=== PATIENT | male | born 1990 | race Caucasian/White ===

== ENCOUNTER 2022-04-05 10:40 | Emergency (ER) | payer MEDICAID ==
[~2022-04-05] VITALS: Ht 170.2 cm; Wt 95.3 kg
[2022-04-05 11:21] VITALS: BP_SYST 124
--- NOTE | 2022-04-05 11:30 | NUR ---
BIBS WITH C/C OF RASH NOTED ON LEFT INNER WRIST. SMALL PUSTULE TYPE RASH NOTED. PT REPORTS RASH WAS ON HIS DORSAL SURFACE OF RIGHT HAND AND HAS NOW IMPROVED BUT SMALL RASH STILL REMAINS ON RIGHT INNER WRIST WELL. DENIES ANY CURRENT PAIN. REPORTS THAT IT BOTHERS HIM WHEN THE SUN HITS IT. PLACED IN WAITING ROOM. WILL UPDATE DR. URIBE.
[2022-04-05] MEDS ORDERED: LORA10TA7 PO (14:25)
[2022-04-05] MEDS ORDERED: BETA45CR3 TP (14:25)
[2022-04-05 15:03] VITALS: BP_SYST 135
--- NOTE | 2022-04-05 15:06 | NUR ---
PT CLEARED FOR DC. RX SENT TO PT'S PHARM. PT VERBALIZED UNDERSTANDING OF DC INSTRUCTIONS. CONDITION STABLE AT DC.
== END 2022-04-05 15:03 | disposition home or self-care (01) ==
LOC: SED 10:40
DX: L30.1 Dyshidrosis [pompholyx] (principal); R21 Rash and other nonspecific skin eruption; I10 Essential (primary) hypertension; Z79.899 Other long term (current) drug therapy
CPT/HCPCS: 99283